=== PATIENT | female | born 1935 | race Caucasian/White ===

== ENCOUNTER → 2017-06-12 | Outpatient (CLI) | payer MEDICARE | LOC: RAD 15:00 | PROVIDERS: ATTEND Physician Assistant | DX: M41.84 Other forms of scoliosis, thoracic region (principal); I10 Essential (primary) hypertension; I48.91 Unspecified atrial fibrillation; Z79.01 Long term (current) use of anticoagulants | CPT/HCPCS: 71046 ==

== ENCOUNTER → 2017-07-01 | Outpatient (CLI) | payer MEDICARE ==
[~2017-07-01] MED LIST: REGADENOSON 0.4 MG/5 ML SYRINGE ONE
== END | disposition home or self-care (01) ==
LOC: RAD 11:58
PROVIDERS: ATTEND Physician Assistant
DX: I48.91 Unspecified atrial fibrillation (principal); I10 Essential (primary) hypertension
CPT/HCPCS: 78452; 93017; A9502; J2785

== ENCOUNTER → 2019-12-15 | Outpatient (CLI) | payer MEDICARE | END | disposition home or self-care (01) | LOC: CVU 14:24 → EDSTATUS 15:00 | PROVIDERS: ATTEND Internal Medicine Cardiovascular Disease | DX: I65.23 Occlusion and stenosis of bilateral carotid arteries (principal); I38 Endocarditis, valve unspecified; I10 Essential (primary) hypertension | CPT/HCPCS: 93880 ==

== ENCOUNTER 2020-06-17 17:18 | Emergency (ER) | payer MEDICARE ==
[~2020-06-17] VITALS: Ht 162.6 cm; Wt 70.0 kg
--- NOTE | 2020-06-17 17:27 | NUR ---
PT BIBA. PER EMS PT FELT LIKE SHE WAS HAVING PALPITATIONS. PT HAS HX OF AFIB AND TAKES ELIQUIS REGULARLY. PT STATES SHE STARTED FEELING CLAMMY AND LIKE SHE WAS HAVING CHILLS APPROXIMATELY A WEEK AGO, BUT WORSENING TODAY. 1ST DOSE OF COVID VACCINE ON SATURDAY. PT RESTING IN [facility] AT THIS TIME, MONITORING IN PLACE, EKG DONE, WCTM. PT CURRENTLY IN AFIB, RATE 75. PT REPORTS SHE IS NO LONGER FEELING PALPITATION, CHILLS, AND REPORTS SHE HAS NO CP OR SOB.
[2020-06-17 18:25] LABS: BASOPHILS % (AUTO) 1 % (0-1); EOSINOPHILS % (AUTO) 1 % (1-7); LYMPHOCYTES % (AUTO) 15 % (22-44); MEAN CORPUSCULAR HEMOGLOBIN 35.1 pg (27.0-34.8); MEAN CORPUSCULAR HGB CONC 34.1 g/dL (32.4-35.8); MEAN PLATELET VOLUME 6.3 fL (7.4-10.4); MONOCYTES % (AUTO) 16 % (2-9); NEUTROPHILS % (AUTO) 67 % (42-75); PLATELET COUNT 211 x10^3/uL (130-400); RED BLOOD COUNT 3.68 x10^6/uL (3.82-5.3); RED CELL DISTRIBUTION WIDTH 14.3 % (9.6-15.2)
[2020-06-17 18:30] LABS: MD NO
[2020-06-17 18:38] LABS: ALBUMIN 4.1 g/dL (3.4-5.0); ANION GAP 10 mmol/L (5-15); CALCIUM 9.6 mg/dL (8.5-10.1); CHLORIDE 103 mmol/L (98-107); CREATININE 0.64 mg/dL (0.55-1.02)
[2020-06-17 18:47] LABS: TROPONIN I < 0.015 ng/mL (0.000-0.045)
[2020-06-17 19:31] VITALS: BP 158/87
--- NOTE | 2020-06-17 19:32 | NUR ---
PT AMBULATED TO DISCHARGE DESK WILL HAVE FRIEND COME PICK HER UP FROM LOBBY.
== END 2020-06-17 19:32 | disposition home or self-care (01) ==
LOC: ED 18:15
DX: I48.20 Chronic atrial fibrillation, unspecified (principal); R00.2 Palpitations; R53.1 Weakness; R07.89 Other chest pain; I10 Essential (primary) hypertension; Z86.39 Personal history of other endocrine, nutritional and metabolic disease
CPT/HCPCS: 36415; 71045; 80048; 82040; 84443; 84484; 85025; 93005; 99285

== ENCOUNTER 2020-08-05 13:51 | Emergency (ER) | payer MEDICARE ==
[~2020-08-05] VITALS: Ht 162.6 cm; Wt 67.6 kg
[2020-08-05] MEDS ORDERED: APIX5TAB PO (14:55)
[2020-08-05] MEDS ORDERED: AMLO2.5T5 PO (14:56)
[2020-08-05] MEDS ORDERED: LEVO125T PO (14:56)
[2020-08-05] MEDS ORDERED: CYCL1DRO EACHEYE (14:57)
[2020-08-05] MEDS ORDERED: MELA10TA PO (14:58)
[2020-08-05] MEDS ORDERED: CHOL10003 PO (14:59)
[2020-08-05] MEDS ORDERED: RIBO25TA PO (15:00)
[2020-08-05] MEDS ORDERED: CALC-116 PO (15:00)
[2020-08-05] MEDS ORDERED: VIT1CAPS42 PO (15:01)
[2020-08-05] MEDS ORDERED: DOCU-144 PO (15:02)
[2020-08-05] MEDS ORDERED: ACET650S21 PO (15:02)
--- NOTE | 2020-08-05 15:09 | NUR ---
ESCORTED PATIENT BACK TO ROOM 31. PT AMBULATED STEADILY WITH HER ROLLATOR WALKER. PT C/O WAKING UP IN THE MORNING WITH A CLAMMY SENSATION ON HER BACK IN THE MORNINGS WELL HEAT INTOLERANCE WITHOUT RUNNING A FEVER.
--- NOTE | 2020-08-05 16:02 | NUR ---
CORONA ARMENTA AT BEDSIDE.
[2020-08-05 16:41] LABS: BASOPHILS % (AUTO) 1 % (0-1); EOSINOPHILS % (AUTO) 0 % (1-7); LYMPHOCYTES % (AUTO) 13 % (22-44); MEAN CORPUSCULAR HEMOGLOBIN 35.1 pg (27.0-34.8); MEAN CORPUSCULAR HGB CONC 33.7 g/dL (32.4-35.8); MEAN PLATELET VOLUME 6.3 fL (7.4-10.4); MONOCYTES % (AUTO) 13 % (2-9); NEUTROPHILS % (AUTO) 72 % (42-75); PLATELET COUNT 209 x10^3/uL (130-400); RED BLOOD COUNT 3.75 x10^6/uL (3.82-5.3); RED CELL DISTRIBUTION WIDTH 14.1 % (9.6-15.2)
[2020-08-05 16:43] LABS: MD NO
[2020-08-05 16:45] LABS: ALANINE AMINOTRANSFERASE 30 U/L (12-78); ALBUMIN 3.7 g/dL (3.4-5.0); ANION GAP 8 mmol/L (5-15); CALCIUM 9.1 mg/dL (8.5-10.1); CHLORIDE 105 mmol/L (98-107); CREATININE 0.59 mg/dL (0.55-1.02)
[2020-08-05 16:47] LABS: ALKALINE PHOSPHATASE 89 U/L (45-117); BILIRUBIN,TOTAL 0.6 mg/dL (0.2-1.0)
[2020-08-05 17:30] VITALS: BP 150/78
--- NOTE | 2020-08-05 18:18 | NUR ---
Patient given discharge instructions and they have confirmed that they understand the instructions. Patient ambulatory with steady gait.
== END 2020-08-05 18:19 | disposition home or self-care (01) ==
LOC: ED 15:39
DX: R60.0 Localized edema (principal); M79.661 Pain in right lower leg; I48.91 Unspecified atrial fibrillation; I10 Essential (primary) hypertension
CPT/HCPCS: 36415; 80053; 85025; 93970; 99284

== ENCOUNTER → 2020-09-14 | Outpatient (CLI) | payer MEDICARE ==
[~2020-09-14] MED LIST changes: +ACET650S21 PO; +AMLO2.5T5 PO; +APIX5TAB PO; +CALC-116 PO; +CHOL10003 PO; +CYCL1DRO EACHEYE; +DOCU-144 PO; +LEVO125T PO; +MELA10TA PO; +RIBO25TA PO; +VIT1CAPS42 PO
== END | disposition home or self-care (01) ==
LOC: CFH 12:38
PROVIDERS: ATTEND Internal Medicine Cardiovascular Disease
DX: I48.91 Unspecified atrial fibrillation (principal)
CPT/HCPCS: 78452; 93017; A9502; J2785